=== PATIENT | male | born 1960 | race Caucasian/White ===

== ENCOUNTER → 2016-05-14 | Outpatient (CLI) | payer OTHER ==
[~2016-05-14] MED LIST: ACET-1256 PO; ADVIN25050 INH; AMLO10CA2 PO; ATOR10TA88 PO; CLB100 PO; CO Q10 PO; COEN1CAP17 PO; DEXT30TA7 PO; KETO10TA PO; MELO15TA4 PO; MULTTAB5 PO; NXM/40 PO; OXYC-57 PO; TIOTCAP INH; TRIA3AER NAE
--- NOTE | 2016-05-14 15:07 | DIAGNOSTIC IMAGING REPORT ---
CHEST 2 VIEWS ROUTINE CLINICAL HISTORY: Preoperative chest COMPARISON STUDY: 06/16/2015 FINDINGS: The cardiac and mediastinal contours are normal. There is no evidence of focal pulmonary consolidation. There is no evidence of failure. No pleural effusions are visualized.[ IMPRESSION: No active disease in the chest. Electronically signed by: Basim Montoya M.D. 05/14/2016 3:05 PM Dictated Date/Time: 05/14/2016 3:05 PM
[2016-05-14 15:46] LABS: BASO % 0.3 %; BASO ABS # 0.03 K/uL (0-0.2); COMPLETE YES; EOS % 2.2 %; HEMATOCRIT 46.4 % (42-52); IG% 0.4 %; LYMPH % 24.4 %; LYMPH ABS # 2.79 K/uL (1.2-3.4); MEAN CELL VOLUME 86.4 fL (80-100); MEAN CORPUSCULAR HEMOGLOBIN 28.7 pg (25-34); MEAN CORPUSCULAR HGB CONC 33.2 g/dl (32-36); MEAN PLATELET VOLUME 11.5 fL (7.4-10.4); MONO % 9.5 %; NEUT % 63.2 %; PLATELET COUNT 276 K/uL (130-400); RED BLOOD COUNT 5.37 M/uL (4.7-6.1); WHITE BLOOD COUNT 11.42 K/uL (4.8-10.8)
[2016-05-14 16:04] LABS: BLOOD UREA NITROGEN 19 mg/dl (7-18); BUN/CREATININE RATIO 20.8 (10-20); CALCIUM 8.9 mg/dl (8.5-10.1); CARBON DIOXIDE 28 mmol/L (21-32); CHLORIDE 105 mmol/L (98-107); GLUCOSE 120 mg/dl (70-99); POTASSIUM 4.1 mmol/L (3.5-5.1); SODIUM 141 mmol/L (136-145)
== END | disposition home or self-care (01) ==
LOC: C.CPL 14:14
PROVIDERS: ATTEND Orthopaedic Surgery
DX: Z01.810 Encounter for preprocedural cardiovascular examination (principal); Z01.811 Encounter for preprocedural respiratory examination; Z01.812 Encounter for preprocedural laboratory examination; M75.81 Other shoulder lesions, right shoulder

== ENCOUNTER → 2016-05-31 | Day surgery (SDC) | payer OTHER ==
[2016-05-22 08:49] VITALS: BMI 52.0
--- NOTE | 2016-05-30 14:35 | HISTORY & PHYSICAL EXAMINATION ---
DATE OF ADMISSION: 05/31/2016 HISTORY AND PHYSICAL ADMISSION NOTE CHIEF COMPLAINT: Biceps tendinopathy of the right shoulder. 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 He states he injured his shoulder over a year ago. He reported the incident and was treated by another provider. He had multiple conservative measures and ultimately did have surgery to his shoulder. After the surgery, he continued to notice pain and popping in his shoulder and a lot of pain anteriorly. He had a decompression and a debridement of the biceps tendon at the time. After failing about a year of conservative treatment, he presented to our office for second opinion. I was concerned of the persistent biceps tendinopathy and he elected to proceed with an open biceps tenodesis. PAST MEDICAL HISTORY: Significant for problems with anesthesia, blood clots, hyperlipidemia, hypertension, GERD and respiratory disease. PAST SURGICAL HISTORY: Significant for a right foot ganglion cyst excision, tonsillectomy, left total knee arthroplasty, hernia repair, vasectomy, right shoulder arthroscopy in June of 2015 and sinus surgery. ALLERGIES: None. MEDICATIONS: Include albuterol 2 puffs as needed, Lotrel 10-20 daily, Lipitor 10 mg daily, Voltaren gel as needed, Nexium 40 mg daily, Advair Diskus 1 puff twice a day, Mobic 50 mg daily, Oxycodone as needed for pain, and Spiriva inhaler daily. FAMILY HISTORY: Noncontributory. SOCIAL HISTORY: He is , never drinks. denies tobacco use. Has 1 child and is moderately active. REVIEW OF SYSTEMS: He complains of right shoulder pain. All other pertinent review of systems is negative. PHYSICAL EXAMINATION: GENERAL: He is awake, alert and oriented x3. He is in no apparent distress. He is very pleasant. HEENT: Pupils are equal, round and reactive to light. Extraocular motion intact. Oral mucosa is pink and moist. HEART: Regular rate per radial pulse. LUNGS: Daylin symmetrically bilaterally with no audible breath sounds. ABDOMEN: Soft, nontender, nondistended. MUSCULOSKELETAL: On physical examination of the right shoulder, he has just about full active range of motion. He has 4+/5 muscle strength with full can testing, 5/5 muscle strength with external rotation. Negative bear hug and belly press test. He has significant tenderness to palpation in the subacromial space and down the length of the long head of the biceps tendon. No AC joint pain. IMPRESSION: Biceps tendinopathy of the right shoulder. PLAN: Will proceed with a revision right shoulder arthroscopy to include removal of scar tissue and open sub-pec biceps tenodesis. Postoperatively, he will be placed in an arm sling and oral pain medications and discharged to home. LIZBETH
[~2016-05-31] VITALS: Ht 177.8 cm; Wt 164.6 kg
[~2016-05-31] MED LIST changes: +ATOR10TA82 PO; -ATOR10TA88 PO; +ATROPINE SULFATE 0.1 MG/ML 5ML SYR IV PRN; +BUPIVACAINE/EPINEPHRINE 0.5% MPF 1:200,000 30 ML VIAL ONE; +CEFAZOLIN 3000 MG/65 ML D5W 65 ML IV SCH; -CLB100 PO; -CO Q10 PO; +DEXAMETHASONE SOD INJ 4 MG/ML VIAL ONE; -DEXT30TA7 PO; +EpHEDrine SULFATE INJ 50 MG/ML AMP IV PRN; +FENTANYL CITRATE INJ 50 MCG/1 ML 2 ML VIAL IV PRN; +FENTANYL CITRATE INJ 50 MCG/1 ML 2 ML VIAL ONE; +HYDROmorphone INJ 1 MG/ML SYR IV PRN; +LABETALOL HCL IV 5 MG/ML 20ML IV PRN; +LACTATED RINGER'S 1000ML 1,000 ML IV SCH; +LACTATED RINGER'S 1000ML IV SCH; +LIDOCAINE HCL 2% 2 ML VIAL (20MG/ML) ONE; +LIDOCAINE/EPINEPHRINE 2% 1:200,000 20 ML SDV ONE; +MEPERIDINE HCL 25 MG/ML CARP IV PRN; +MIDAZOLAM HCL 1 MG/ML 2ML VIAL ONE; +ONDANSETRON INJ 2 MG/ML 2 ML VIAL IV PRN; +ONDANSETRON INJ 2 MG/ML 2 ML VIAL ONE; +OXYCODONE/ACETAMINOPHEN 5-325 TAB PO PRN; +PHENYLEPHRINE HCL INJ 10 MG/ML VIAL ONE; +PROPOFOL IV EMULSION 10 MG/ML 20 ML VIAL IV ONE; +ROCURONIUM BROMIDE 10 MG/ML 5 ML VIAL ONE; +ROPIVACAINE 0.5% 5 MG/ML 30 ML VIAL ONE; +SODIUM CHLORIDE 0.9% 1000ML 1,000 ML IV SCH; +SUCCINYLCHOLINE CHLORIDE 20 MG/ML 10 ML VIAL IV ONE
--- NOTE | 2016-05-31 08:48 | History & Physical Bridge Note ---
H&P Re-Evaluation Bridge Note: I have examined the patient, reviewed the History & Physical and in the interval since the performance of the History & Physical I have noted the following changes of clinical significance: No changes noted
[2016-05-31 09:15] VITALS: BP 175/99; PULSE 95; TEMP 36.8; O2SAT 95; Ht 177.8 cm; Wt 164.6 kg
--- NOTE | 2016-05-31 12:56 | [facility] Post Operative Brief Note ---
Immediate Operative Summary Operative Date May 31, 2016. Pre-Operative Diagnosis Biceps tendinopathy of the right shoulder Post-Operative Diagnosis Biceps tendinopathy of the right shoulder Procedure(s) Performed Right Shoulder Arthroscopy with distal clavicle resection and bicep tenotomy Surgeon Dr. Vo Corrosion Control Specialist Surgeon(s) Jd Saavedra PA-C Estimated Blood Loss 5mL Findings as above Specimens none per surgeon Complication(s) None Disposition Recovery Room / PACU
--- NOTE | 2016-05-31 13:06 | Discharge Instructions ---
Discharge Instructions Date of Service May 31, 2016. Admission Reason for Admission: Right Shoulder Biceps Tendonitis Discharge Discharge Diagnosis / Problem: SAME ABOVE Discharge Goals Goal(s): Decrease discomfort, Improve function Activity Recommendations Activity Limitations: as noted below Lifting Limitations: gradually increase as tolerated, until after follow-up appointment Exercise/Sports Limitations: until after follow-up appointment Shower/Bathe: tomorrow . Instructions / Follow-Up Instructions / Follow-Up MEDICATIONS: * Resume previous medications unless instructed otherwise by your surgeon. * Always take pain medication on a full stomach or with food to avoid upset stomach. * Do not drink alcohol or drive while taking narcotics. * Ibuprofen or Tylenol may be taken if narcotic not needed. SPECIAL CARE INSTRUCTIONS: __ None _X_ Keep extremity elevated and iced x 48 hours; apply ice 20-30 minutes 8-10 times/day. May remove at night. _X_ Sling (WEAR NEEDED FOR COMFORT) __24 hrs/day __ Remove at night __ Shoulder Immobilizer __ 24 hrs/day __ Remove at night _X_ Dressing __ Maintain until seen in office, may shower with plastic over site _X_ Remove dressings in 24-48 hours and then may shower _X_ Cover incisions with band-aids after showering _X_ Do not remove steri-strips Call physician if chills or temperature rises above 102 degrees or pain unrelieved by prescribed pain medications at . . Current Hospital Diet Patient's current hospital diet: Discharge Diet Recommended Diet: Regular Diet Fluid Restriction: None Procedures Procedures Performed: Right Shoulder Arthroscopy with distal clavicle resection and bicep tenotomy Pending Studies Studies pending at discharge: no Work Instructions Return To Work: after follow-up Lifting Limitations: NO LIFTING WITH RIGHT ARM Medical Emergencies . Who to Call and When: Medical Emergencies: If at any time you feel your situation is an emergency, please call 911 immediately. . Non-Emergent Contact Non-Emergency issues call your: Primary Care Provider Call Non-Emergent contact if: you have a fever, temperature is above 101.5 . "Provider Documentation" section prepared by Jd Saavedra. VTE Core Measure Inpt VTE Proph given/why not?: SCD's
--- NOTE | 2016-05-31 13:24 | OPERATIVE REPORT ---
DATE OF OPERATION: 05/31/2016 PREOPERATIVE DIAGNOSIS: Scar tissue formation and biceps tendinopathy of the right shoulder. POSTOPERATIVE DIAGNOSIS: Same. PROCEDURE: Right shoulder diagnostic arthroscopy with extensive debridement, revision distal clavicle resection, and biceps tenotomy. SURGEON: Dr. Darío Vo. ASSEMBLER SEAT: Josafat Saavedra PA-C, whose assistance was necessary for positioning the arm and helping with instrumentation. ANESTHESIA: General with a right interscalene nerve block. COMPLICATIONS: None. CONDITION: Stable to PACU. INDICATIONS: Chano is a pleasant 55-year-old male who injured his shoulder about a year ago. He had a right shoulder arthroscopy to include decompression and distal clavicle resection. Unfortunately, he had a lot of pain postoperatively. After failing a year of conservative treatment and with continued pain, he presented to my office for a second opinion. MRI and clinical examination showed an intact rotator cuff, but evidence of biceps tendinopathy. He elected to undergo arthroscopy. OPERATION AND FINDINGS: On 05/31/2016 he arrived at [facility] for the above procedure. He was seen in the preoperative holding area and the operative extremity was identified and signed. He was given a preoperative antibiotic and a right interscalene nerve block. He was taken back to the operating room, laid on the table in supine position and put under general anesthesia. He was then put into the beachchair position. The right shoulder was prepped and draped in sterile fashion. Time-out was done and the patient and operative extremity was identified. A scope was introduced in the posterior portal. Diagnostic arthroscopy showed some grade 4 chondral changes on the posterior glenoid. There was some grade 3 chondral changes on the posterior aspect of the humeral head. There was a large superior labral tear and significant redness and scarring of the biceps tendon. There was redness and scarring throughout the entire rotator interval. It did not appear to be a frozen shoulder. The subscapularis was intact. The middle and anterior inferior glenohumeral ligaments looked okay. The supraspinatus, infraspinatus and teres minor were checked and intact. An anterior portal was made. A shaver and ablator were used to start an extensive debridement. The entire rotator interval was opened up and care was taken to ensure hemostasis throughout. The labrum was debrided with a large superior labral tear and the fraying on the anterior aspect of the biceps the decision was made to do a biceps tenotomy. The biceps tendon was then arthroscopically tenotomized. The scope was then put into the subacromial space. A lateral portal was made. A shaver was used to do an extensive debridement including complete subacromial and subdeltoid bursectomy. Scar tissue was removed from the medial subacromial space as well as in the subdeltoid region. Once all scar tissue was removed time was spent ensuring meticulous hemostasis with a cautery. There was a portion of the distal clavicle that had not been removed at the previous surgery. It was impinging upon the supraspinatus tendon. A 5-0 cameron was used to resect the undersurface of the clavicle to open up the supraspinatus outlet and complete a revision distal clavicle resection. A revision acromioplasty was not needed. The rotator cuff was intact from the bursal side. After all scar tissue had been removed and hemostasis was completely controlled arthroscopic instruments removed from the shoulder. Attention was turned to an open subpectoral biceps tenodesis. A small incision was made over the inferior border of the pec major and dissection was taken down through the fascia. I was unable to pull the long head of the biceps tendon out of the wound. I was able to easily identify it, but it was entrapped more proximally. Several different techniques were used to try to pull it out of the wound, but I was eventually getting a little bit of tearing at the musculotendinous junction and decided to leave it alone. I think the tenotomy will be beneficial. The wound was then irrigated and closed with 3-0 Vicryl and running 3-0 Monocryl. Steri-strips were placed. Portal sites were closed with 3-0 nylon. He was then placed in a soft dressing and a regular arm sling. He was then extubated, transferred to a [facility] and taken to the postanesthesia care unit in stable condition. He tolerated the procedure well. I attest to the content of the Intraoperative Record and any orders documented therein. Any exceptio ns are noted below.
[2016-05-31 14:15] VITALS: BP 145/79; PULSE 98; TEMP 36.5; O2SAT 93
[2016-05-31 14:45] VITALS: BP 139/91; PULSE 96; O2SAT 93
[2016-05-31 15:15] VITALS: BP 148/83; PULSE 94; TEMP 36.6; O2SAT 92
--- NOTE | 2016-05-31 16:13 | Anesthesiology Progress Note ---
Anesthesia Post Op Note Date & Time May 31, 2016 at 16:12 Vital Signs Pain Intensity: 0 Vital Signs Past 12 Hours Date Time Temp Pulse Resp B/P Pulse Ox O2 Delivery O2 Flow Rate FiO2 05/31/16 15:15 36.6 94 18 148/83 92 Room Air 05/31/16 14:45 96 18 139/91 93 Nasal Cannula 2 05/31/16 14:15 36.5 98 16 145/79 93 Nasal Cannula 2 05/31/16 14:00 36.1 96 15 128/89 90 Nasal Cannula 2 05/31/16 13:50 95 16 135/84 91 Nasal Cannula 2 05/31/16 13:40 97 18 141/90 90 Nasal Cannula 2 05/31/16 13:30 95 22 166/102 90 Nasal Cannula 2 05/31/16 13:20 98 19 160/98 91 Nasal Cannula 4 05/31/16 13:10 101 20 156/91 92 Nasal Cannula 4 05/31/16 13:04 36.0 102 16 171/99 92 Nasal Cannula 2 05/31/16 09:15 36.8 95 18 175/99 95 Room Air Notes Mental Status: alert / awake / arousable, participated in evaluation Pt Amnestic to Procedure: Yes Nausea / Vomiting: adequately controlled Pain: adequately controlled Airway Patency, RR, SpO2: stable & adequate BP & HR: stable & adequate Hydration State: stable & adequate Anesthetic Complications: no major complications apparent
== END | disposition home or self-care (01) ==
LOC: C.ACU 08:23
PROVIDERS: ATTEND Orthopaedic Surgery
DX: M75.21 Bicipital tendinitis, right shoulder (principal); L90.5 Scar conditions and fibrosis of skin; E78.5 Hyperlipidemia, unspecified; I10 Essential (primary) hypertension; K21.9 Gastro-esophageal reflux disease without esophagitis; Z98.890 Other specified postprocedural states

== ENCOUNTER 2017-06-20 10:58 | Inpatient (IN) | payer OTHER ==
[2017-05-21 13:42] VITALS: Ht 177.8 cm; Wt 176.9 kg
--- NOTE | 2017-05-21 13:48 | PAT Medication Instructions ---
Service Date May 21, 2017. Current Home Medication List Acetaminophen (Tylenol), 1,000 MG PO Q4H Albuterol Hfa (Ventolin Hfa), 2 PUFFS INH UD Amlodipine Besylate-Benazepril (Lotrel), 1 CAP PO QAM Amoxicillin (Amoxil), 500 MG PO UD Atorvastatin (Lipitor), 10 MG PO QPM Coenzyme Q10 (Ubidecarenone) (Co Q 10), 1 CAP PO BID Diclofenac Sodium (Topical) (Voltaren 1% Top Gel), 1 DOSE TOP UD PRN for PRN Esomeprazole Magnesium (Nexium), 40 MG PO QAM Fluticasone Furoate-Vilanterol (Breo Ellipta), 1 PUFF INH QAM Meloxicam (Mobic), 15 MG PO QAM Metoprolol Succinate (Toprol Xl), 50 MG PO QAM Montelukast Sodium (Singulair), 10 MG PO HS Multiple Vitamins W/ Minerals (Centrum), 1 TAB PO QAM Cgbjnjsm-Outzcnkgc-Om (Otic) (Neomycin/Polymyxin/Hc), 1 DOSE OTB UD PRN for PRN Tiotropium [place] (Spiriva Handihaler), PO QAM Triamcinolone Acetonide (Nasal (Nasacort Allergy 24Hr), 1 DOSE JESSICA QPM [Albuterol Neb], Unknown Dose INH UD PRN for PRN Medication Instructions For Your Scheduled Surgery - Check with surgeon for instructions: Meloxicam (Mobic), 15 MG PO QAM - Hold the following medications 2 weeks prior to surgery: Coenzyme Q10 (Ubidecarenone) (Co Q 10), 1 CAP PO BID - Continue as directed: Amoxicillin (Amoxil), 500 MG PO UD - Hold the following medications 24 hours prior to surgery: Diclofenac Sodium (Topical) (Voltaren 1% Top Gel), 1 DOSE TOP UD PRN for PRN - Hold the following medications the morning of surgery: Multiple Vitamins W/ Minerals (Centrum), 1 TAB PO QAM - Take the following medications the morning of surgery with a sip of water: Esomeprazole Magnesium (Nexium), 40 MG PO QAM Fluticasone Furoate-Vilanterol (Breo Ellipta), 1 PUFF INH QAM Metoprolol Succinate (Toprol Xl), 50 MG PO QAM Emwsxydu-Qfmptwusu-Dp (Otic) (Neomycin/Polymyxin/Hc), 1 DOSE OTB UD PRN for PRN (if needed) Tiotropium [place] (Spiriva Handihaler), PO QAM [Albuterol Neb], Unknown Dose INH UD PRN for PRN (if needed) Albuterol Hfa (Ventolin Hfa), 2 PUFFS INH UD Amlodipine Besylate-Benazepril (Lotrel), 1 CAP PO QAM Acetaminophen (Tylenol), 1,000 MG PO Q4H (okay to take up to 4 hours prior to surgery if needed) - Take the following medications as scheduled the night before surgery: [Albuterol Neb], Unknown Dose INH UD PRN for PRN (if needed) Triamcinolone Acetonide (Nasal (Nasacort Allergy 24Hr), 1 DOSE JESSICA QPM Jaddiibn-Qxyxxgbnp-Ew (Otic) (Neomycin/Polymyxin/Hc), 1 DOSE OTB UD PRN for PRN (if needed) Montelukast Sodium (Singulair), 10 MG PO HS Atorvastatin (Lipitor), 10 MG PO QPM Albuterol Hfa (Ventolin Hfa), 2 PUFFS INH UD Acetaminophen (Tylenol), 1,000 MG PO Q4H (if needed) If you have any questions please call us at [phone] or [phone] or [phone]
[2017-05-21 15:41] LABS: PTT PATIENT 26.1 SECONDS (21.0-31.0)
--- NOTE | 2017-06-19 09:18 | HISTORY & PHYSICAL EXAMINATION ---
DATE OF ADMISSION: 06/20/2017 CHIEF COMPLAINT: Primary osteoarthritis of the right shoulder. 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 I initially did a shoulder arthroscopy on him for decompression and biceps tenodesis, but noticed some osteoarthritis of his shoulder at that time. Unfortunately, over the past year, his symptoms have progressed. Serial radiographs showed advancing osteoarthritis of the right shoulder. After failing extensive conservative treatment including multiple injections, he has elected to proceed with a right total shoulder arthroplasty. PAST MEDICAL HISTORY: Significant for hyperlipidemia, hypertension, GERD, some respiratory disease and some blood clots in the past, but nothing recent. PAST SURGICAL HISTORY: Significant for a surgery to his right foot, tonsillectomy, left total knee arthroplasty, hernia repair, vasectomy, right shoulder arthroscopy and sinus surgery. ALLERGIES: None. MEDICATIONS: Include albuterol, amlodipine, amoxicillin, atorvastatin, CoQ10, Voltaren, Nexium, Advair, Mobic, Percocet as needed, Spiriva, and Nasacort. FAMILY HISTORY: Significant for heart disease and breast cancer. SOCIAL HISTORY: He is . He never drinks, moderately active. He has 1 child. His is able to help take care of him at home. REVIEW OF SYSTEMS: He complains of right shoulder pain and stiffness. All other pertinent review of systems are negative. PHYSICAL EXAMINATION: GENERAL: He is awake, alert and oriented x3. He is in no apparent distress. He is very pleasant. HEENT: Pupils equal, round, reactive to light. Extraocular motion intact. Oral mucosa is pink and moist. HEART: Regular rate per radial pulse. LUNGS: Daylin symmetrically bilaterally with no audible breath sounds. ABDOMEN: Soft, nontender, nondistended. MUSCULOSKELETAL: On physical examination of his right shoulder, he has about 130 degrees of forward elevation and 100 degrees of abduction. He has 5/5 muscle strength to full can test and external rotation, significant tenderness to palpation over the anterior glenohumeral joint line with crepitus throughout. IMAGING DATA: X-rays of the right shoulder show advanced osteoarthritis with bone on bone articulation, joint space narrowing and osteophyte formation. IMPRESSION: Advanced osteoarthritis of the right shoulder. PLAN: Will proceed with a Biomet comprehensive right total shoulder arthroplasty. Postoperatively, he will be placed in an arm sling and kept overnight at the hospital for postoperative medical management. He will use community nursing at [facility] [place] upon discharge.
[2017-06-20] VITALS (9 sets, daily range): BP systolic 109–150; BP diastolic 64–91; PULSE 59–85; TEMP 36.5–37; O2SAT 91–98
[~2017-06-20] VITALS: Ht 177.8 cm; Wt 176.9 kg
[2017-06-20] MEDS: TRANEXAMIC ACID INJ 1,000 MG x 2 Bags IV SCH ×4 (06:30→13:02)
[~2017-06-20 10:58] MED LIST changes: +ACETAMINOPHEN 500 MG TAB PO SCH; -ADVIN25050 INH; +ALBUTEROL NEB INH; +AMOX500C3 PO; -BUPIVACAINE/EPINEPHRINE 0.5% MPF 1:200,000 30 ML VIAL ONE; -CEFAZOLIN 3000 MG/65 ML D5W 65 ML IV SCH; +CEFAZOLIN 3000MG IV PUSH 22.5 ML IV SCH; -DEXAMETHASONE SOD INJ 4 MG/ML VIAL ONE; +DICL1GEL12 TOP; +FAMOTIDINE 20 MG TAB PO SCH; -FENTANYL CITRATE INJ 50 MCG/1 ML 2 ML VIAL IV PRN; -FENTANYL CITRATE INJ 50 MCG/1 ML 2 ML VIAL ONE; +FLUT1INH INH; +FURO40TA3 PO; +GABAPENTIN 600 MG PO SCH; -HYDROmorphone INJ 1 MG/ML SYR IV PRN; +HYDROmorphone INJ 2 MG/ML SYR/VIAL IV PRN; -KETO10TA PO; -LABETALOL HCL IV 5 MG/ML 20ML IV PRN; -LACTATED RINGER'S 1000ML 1,000 ML IV SCH; -LIDOCAINE HCL 2% 2 ML VIAL (20MG/ML) ONE; -LIDOCAINE/EPINEPHRINE 2% 1:200,000 20 ML SDV ONE; +MELO-84 PO; -MELO15TA4 PO; -MEPERIDINE HCL 25 MG/ML CARP IV PRN; +METO-217 PO; -MIDAZOLAM HCL 1 MG/ML 2ML VIAL ONE; +MONT1TAB3 PO; +NEOM1SOL25 OTB; -ONDANSETRON INJ 2 MG/ML 2 ML VIAL ONE; -OXYC-57 PO; -OXYCODONE/ACETAMINOPHEN 5-325 TAB PO PRN; +PHENYLEPHRINE 100MCG/ML 5ML SYR IV PRN; -PHENYLEPHRINE HCL INJ 10 MG/ML VIAL ONE; -PROPOFOL IV EMULSION 10 MG/ML 20 ML VIAL IV ONE; -ROCURONIUM BROMIDE 10 MG/ML 5 ML VIAL ONE; +ROPIVACAINE 5MG/ML 30 ML 150 MG, BUPIVACAINE 0.5% MPF INJ 30 ML, EpINEphrine HCL INJ 0.... INFIL SCH; -SODIUM CHLORIDE 0.9% 1000ML 1,000 ML IV SCH; +SPRIN/30 PO; -SUCCINYLCHOLINE CHLORIDE 20 MG/ML 10 ML VIAL IV ONE; -TIOTCAP INH; +TRIA1SPR4 NAE; -TRIA3AER NAE; +VNTHFA/IN INH
[2017-06-20] MEDS ORDERED: BACITRACIN 50000 UNIT VIAL ONE (12:38)
[2017-06-20] MEDS ORDERED: ORTHO JOINT ANESTHETIC ONE (12:38)
[2017-06-20] MEDS ORDERED: PROPOFOL IV EMULSION 10 MG/ML 20 ML VIAL IV ONE ×2 (12:39→15:56)
[2017-06-20] MEDS ORDERED: LIDOCAINE HCL 2% 2 ML VIAL (20MG/ML) ONE ×2 (12:39→13:55)
[2017-06-20] MEDS ORDERED: MIDAZOLAM HCL 1 MG/ML 2ML VIAL ONE (12:39)
[2017-06-20] MEDS ORDERED: FENTANYL CITRATE INJ 50 MCG/1 ML 2 ML VIAL ONE ×2 (12:40→15:30)
[2017-06-20] MEDS ORDERED: DEXAMETHASONE SOD INJ 4 MG/ML VIAL ONE (13:55)
[2017-06-20] MEDS ORDERED: ONDANSETRON INJ 2 MG/ML 2 ML VIAL ONE (13:55)
[2017-06-20] MEDS ORDERED: ROCURONIUM BROMIDE 10 MG/ML 5 ML VIAL IV ONE (13:55)
[2017-06-20] MEDS ORDERED: EpHEDrine SULFATE 50MG/5ML SYR ONE (14:01)
[2017-06-20] MEDS ORDERED: NEOSTIGMINE METHYLSULFATE 5 MG/5 ML SYR ONE (14:32)
[2017-06-20] MEDS ORDERED: GLYCOPYRROLATE INJ 0.2 MG/ML VIAL ONE ×3 (14:32→15:56)
--- NOTE | 2017-06-20 15:29 | [facility] Post Operative Brief Note ---
Immediate Operative Summary Operative Date Jun 20, 2017. Pre-Operative Diagnosis Advanced Osteoarthritis of Right Shoulder Post-Operative Diagnosis Advanced Osteoarthritis of Right Shoulder Procedure(s) Performed Right Total Shoulder Replacement, cemented Surgeon Dr. Darío Vo Plastic Welding Machine Operator Surgeon(s) Jd Saavedra PA-C Estimated Blood Loss 250 cc Findings Consistent with Post-Op Diagnosis Specimens Permanent: A. Right humeral head Drains None Anesthesia Type General Regional Complication(s) none Disposition Disposition: Recovery Room / PACU
[2017-06-20] MEDS ORDERED: SOD PHOSPHATE/SOD BIPHOSPHATE ENEMA 132 ML BTL PR PRN (15:30)
[2017-06-20] MEDS ORDERED: MAGNESIUM HYDROXIDE SUSP 30 ML UDC PO PRN (15:30)
[2017-06-20] MEDS ORDERED: FUROSEMIDE 40 MG TAB PO PRN (15:30)
[2017-06-20] MEDS ORDERED: MoRPHine SULFATE 2 MG/ML CARP IV PRN (15:30)
[2017-06-20] MEDS ORDERED: ONDANSETRON INJ 2 MG/ML 2 ML VIAL IV PRN (15:30)
[2017-06-20] MEDS ORDERED: NALOXONE HCL 0.4 MG/1 ML VIAL/CARP IV PRN (15:30)
[2017-06-20] MEDS ORDERED: BISACODYL 10 MG SUPP PR PRN (15:30)
[2017-06-20] MEDS ORDERED: METOCLOPRAMIDE HCL INJ 5 MG/ML 2 ML VIAL IV PRN (15:30)
[2017-06-20] MEDS ORDERED: HYDROmorphone INJ 2 MG/ML SYR/VIAL ONE (16:06)
--- NOTE | 2017-06-20 16:23 | OPERATIVE REPORT ---
DATE OF OPERATION: 06/20/2017 PREOPERATIVE DIAGNOSIS: Primary osteoarthritis of the right shoulder. POSTOPERATIVE DIAGNOSIS: Same. PROCEDURE: Right total shoulder arthroplasty. SURGEON: Dr. Darío Vo. MANAGER ORGANIZATIONAL: Jd Saavedra PA-C, whose assistance was necessary for holding retractors, exposure, and closure. ANESTHESIA: General with a right interscalene nerve block. COMPLICATIONS: None. CONDITION: Stable to PACU. This case took about twice as long as a normal shoulder replacement given his size. He had BMI of 56 and he was any way close to 400 pounds. Exposure was very difficult and several different style retractors were used that I am not accustomed to. IMPLANTS USED: I used a Biomet comprehensive right total shoulder arthroplasty system with a size medium glenoid with a Regenerex peg, a size 14 mini pressfit stem and a size 46 x 18 mm eccentric humeral head. INDICATIONS: Chano is a pleasant 56-year-old male who had been treated for right shoulder pain. I initially did a shoulder scope on him over a year ago. Unfortunately, he has gone on to develop advanced osteoarthritis of his right shoulder. After failing conservative treatment, he has elected to proceed with a right total shoulder arthroplasty. On 06/20/2017, he arrived at [facility] for the above procedure. He was seen in preoperative holding and the operative extremity was identified and signed. He was given a preoperative antibiotic and a right interscalene nerve block. He was taken back to operating room, laid on the table in supine position and given general anesthesia. He was then put into the beachchair position. The right shoulder was prepped and draped in sterile fashion. Time-out was done and the patient's operative extremity was properly identified. A deltopectoral approach was used. Dissection was taken down through the fat tissue and the interval was exposed. The deltoid was retracted laterally and the conjoined tendon was retracted medially. The upper border of the pec major was released. The shoulder was exposed. Significant time was spent with deeper retractors given his size. The biceps tendon had been previously tenotomized. The subscapularis was then tenotomized off the lesser tuberosity with a peel technique. The proximal humerus was exposed. A canal finding reamer was sent down the center of the humeral canal. Sequential reaming up to a size 14 reamer was done. Off that reamer, a proximal humeral resection guide was placed. The proximal humerus was resected at 135 degrees of inclination and 30 degrees of retroversion. The head was removed. The rotator cuff was palpated and felt to be intact. The glenoid was then exposed. Again, significant time was spent obtaining adequate glenoid exposure given his size. Once appropriate exposure was obtained, the [employer] signature guide was then snapped on to the anterior aspect of the glenoid. The guide pin was placed in the total shoulder arthroplasty hole. A size medium propeller reamer was then used to slightly eccentrically ream the glenoid. The guide placed the glenoid at 7 degrees of retroversion. Once I was happy with the ream, the central boss was drilled followed by 3 peripheral peg holes. The final medium glenoid with Regenerex peg was then cemented into place. The proximal humerus was then exposed. Sequential broaching up to a size 14 broach was done. Off the final broach, a 46 x 18 mm eccentric head was trialed. The shoulder was reduced, brought through a full range of motion and felt to be stable. The proximal humerus was exposed. The broach was then removed. The final size 14 mm mini stem was then impacted into place. A size 46 x 18 mm eccentric head was then impacted on the humeral stem. The shoulder was reduced, brought through a full range of motion and felt to be stable. The surrounding soft tissues were injected with 100 mL of an orthopedic pain control cocktail. The subscapularis was then tenodesed back to the lesser tuberosity with transosseous FiberWire sutures and [id number] sutures in the lateral rotator interval. The axillary nerve was palpated. The joint was irrigated with 3 L normal saline solution and bacitracin. The cephalic vein was still intact. Skin was closed with 2-0 Vicryl, 3-0 V-Loc suture and minerva. He was then placed in a soft dressing and a regular arm sling. He was then extubated, transferred to a litter, and taken to the postanesthesia care unit in stable condition. He tolerated the procedure well. I attest to the content of the Intraoperative Record and any orders documented therein. Any exception s are noted below.
[2017-06-20] MEDS ORDERED: NURSING VERBAL MED ORDER ONE (16:30)
[2017-06-20] MEDS ORDERED: ALBUT/IPRATROP 3MG/0.5MG NEB 3 ML VIAL INH ONE (16:45)
--- NOTE | 2017-06-20 16:45 | DIAGNOSTIC IMAGING REPORT ---
R SHOULDER MIN 2 VIEWS ROUTINE CLINICAL HISTORY: Post shoulder surgery COMPARISON: None. DISCUSSION: Anatomic alignment post right shoulder arthroplasty. Good contact between prosthetic and underlying bone. Expected soft tissue postoperative change IMPRESSION: Anatomic alignment post right shoulder arthroplasty The above report was generated using voice recognition software. It may contain grammatical, syntax or spelling errors. Electronically signed by: Bill Ward M.D. 06/20/2017 4:44 PM Dictated Date/Time: 06/20/2017 4:43 PM
--- NOTE | 2017-06-20 19:21 | Medical Consult ---
Consultation Date of Consultation: Jun 20, 2017. Attending Physician: Darío Vo DO Reason for Consultation: Medical management History of Present Illness This is a 56 yo M with PMHx of hyperlipidemia, hypertension, GERD, SHANITA, SHANITA on cpap, hx of recurrent bronchitis requiring inhalers/nebulizer tx, and remote hx of DVT, who presented for elective R shoulder arthroplasty by Dr. Vo on . PT reports doing well currently other than feeling as if he needs a nebulizer treatment. He is coughing slightly with some yellow-white mucous production. He denies any fever, sweats or chills. PT also notes he uses a room cleaner for his cpap and has not required a nebulizer treatment for upwards of 2 years at this point. He reports some numbness and tingling into the R hand still, mostly that his thumb is affected. Pt denies any other acute complaints. Past Medical/Surgical History HLD HTN GERD Morbid obesity BMI 56 Hx of DVT R leg Surgical Hx: right foot tonsillectomy left total knee arthroplasty hernia repair vasectomy right shoulder arthroscopy sinus surgery Family History FH: COPD (chronic obstructive pulmonary disease) FATHER FH: breast cancer MOTHER FH: myocardial infarction FATHER Social History Smoking Status: Never Smoker Smokeless Tobacco Use: No Alcohol Use: none Drug Use: none Marital Status: Housing Status: lives with family Occupation Status: disabled (on workmans comp) Allergies Coded Allergies: No Known Allergies (Unverified , 06/20/17) Current Inpatient Medications Current Inpatient Medications Medications (Trade) Dose Ordered Sig/Koby Route Start Time Stop Time Status Last Admin Dose Admin Miscellaneous Information (Order Awaiting Action) 1 ea QS N/A 06/20/17 17:00 07/20/17 16:59 06/20/17 17:00 1 EA Atorvastatin Calcium (Lipitor Tab) 10 mg QPM PO 06/20/17 21:00 07/20/17 20:59 UNV Furosemide (Lasix Tab) 40 TO 80MG 2-3 TIMES PER W... UD PRN PO 06/20/17 15:30 07/20/17 15:29 Metoprolol Succinate (Toprol Xl Tab) 50 mg QAM PO 06/21/17 09:00 07/21/17 08:59 UNV Montelukast Sodium (Singulair Tab) 10 mg HS PO 06/20/17 21:00 07/20/17 20:59 UNV Tiotropium [place] (Spiriva Handihaler Inhaler) 1 puff QAM INH 06/21/17 09:00 07/21/17 08:59 Triamcinolone Acetonide (Nasacort Allergy 24hr) 1 sprays QPM JESSICA 06/20/17 21:00 07/20/17 20:59 Amlodipine Besylate (Norvasc Tab) 10 mg QAM PO 06/21/17 09:00 07/21/17 08:59 Miscellaneous Information (Order Awaiting Action) 1 ea QS N/A 06/20/17 17:00 07/20/17 16:59 Metoclopramide HCl (Reglan Inj) 10 mg Q6H PRN IV 06/20/17 15:30 07/20/17 15:29 Ondansetron HCl (Zofran Inj) 4 mg Q6H PRN IV 06/20/17 15:30 07/20/17 15:29 06/20/17 17:28 4 MG Pantoprazole Sodium (Protonix Tab) 40 mg QAM PO 06/21/17 09:00 06/24/17 09:01 UNV Potassium Chloride 10 meq/ Sodium Chloride 1,005 ml @ 100 mls/hr Q10H3M IV 06/20/17 18:30 07/20/17 18:29 Ketorolac Tromethamine (Toradol Inj) 30 mg Q6H IV. 06/20/17 15:30 06/22/17 15:29 UNV Oxycodone HCl (Roxicodone Immediate Rel Tab) `1-2 TABS FOR PAIN `1 TAB... Q4H PRN PO 06/20/17 15:30 07/04/17 15:29 Acetaminophen 1000 mg/Empty Bag 100 ml @ 400 mls/hr Q8 IV 06/20/17 22:00 06/21/17 21:59 Morphine Sulfate (MoRPHine SULFATE INJ) 2 mg Q2HWA PRN IV 06/20/17 15:30 07/04/17 15:29 Naloxone HCl (Narcan Inj) 0.1 mg Q2M PRN IV 06/20/17 15:30 07/20/17 15:29 Magnesium Hydroxide (Milk Of Magnesia Susp) 30 ml Q6H PRN PO 06/20/17 15:30 07/20/17 15:29 Bisacodyl (Dulcolax Supp) 10 mg DAILY PRN OR 06/20/17 15:30 07/20/17 15:29 Sodium Biphosphate/ Sodium Phosphate (Fleet Enema) 132 ml DAILY PRN OR 06/20/17 15:30 07/20/17 15:29 Senna (Senokot Tab) 17.2 mg HS PO 06/20/17 21:00 07/20/17 20:59 UNV Docusate Sodium (coLACE CAP) 100 mg BID PO 06/20/17 21:00 07/20/17 20:59 UNV Multivitamins (Multivitamin Tab) 1 tab DAILY PO 06/21/17 09:00 07/21/17 08:59 UNV Cefazolin Sodium 3000 mg/Syringe 22.5 ml @ 4.5 mls/min Q8H IV 06/20/17 22:00 06/21/17 06:04 Benazepril HCl (Lotensin Tab) 20 mg QAM PO 06/21/17 09:00 07/21/17 08:59 Review of Systems Constitutional: No fever, sweats or chills Eyes: No diplopia, no worsening or blurred vision ENT: normal hearing, no trouble swallowing Respiratory: + cough and feels slight chest tightness, no chest pain, + yellow sputum, dyspnea at rest or on exertion Cardiovascular: No chest pain or palpitations Abdomen: No pain, nausea, vomiting, diarrhea or constipation Musculoskeletal: No joint pain, calf pain, swelling Neurologic: No weakness, + numbness into R hand, no balance problems Psychiatric: No anxiety or depression Skin: No rash or itch Physical Exam Date Time Temp Pulse Resp B/P (MAP) Pulse Ox O2 Delivery O2 Flow Rate FiO2 06/20/17 18:29 74 96 Nasal Cannula 3.0 06/20/17 18:16 36.9 79 16 120/81 (94) 94 Nasal Cannula 3.0 06/20/17 18:05 Nasal Cannula 3.0 06/20/17 17:49 36.6 59 18 123/71 (88) 91 Nasal Cannula 4.0 06/20/17 17:25 36.5 63 16 128/68 (88) 92 Nasal Cannula 3.0 4/27/18 17:15 92 3.0 06/20/17 17:06 120/71 06/20/17 17:03 61 13 91 06/20/17 17:03 62 13 06/20/17 17:01 126/73 06/20/17 16:58 83 11 93 06/20/17 16:58 76 11 06/20/17 16:56 132/71 06/20/17 16:53 82 18 92 06/20/17 16:53 81 18 06/20/17 16:52 36.5 75 16 132/71 (86) 92 2 06/20/17 16:51 137/78 06/20/17 16:48 68 10 06/20/17 16:48 69 10 91 06/20/17 16:47 69 11 92 06/20/17 16:47 67 11 06/20/17 16:46 135/79 06/20/17 16:42 91 21 91 06/20/17 16:42 87 21 06/20/17 16:41 123/75 06/20/17 16:37 84 19 06/20/17 16:37 83 19 97 06/20/17 16:36 137/81 06/20/17 16:32 83 15 93 06/20/17 16:32 83 15 06/20/17 16:31 118/75 06/20/17 16:27 86 22 92 06/20/17 16:27 85 22 06/20/17 16:26 124/71 06/20/17 16:22 81 16 06/20/17 16:22 81 16 93 06/20/17 16:21 135/76 06/20/17 16:17 79 16 93 06/20/17 16:17 80 16 06/20/17 16:16 161/85 06/20/17 16:12 80 20 06/20/17 16:12 80 20 93 06/20/17 16:11 78 18 06/20/17 16:11 77 18 150/83 93 06/20/17 16:06 80 17 06/20/17 16:06 80 17 127/81 95 06/20/17 16:02 137/83 06/20/17 16:01 84 19 164/141 91 06/20/17 16:01 86 19 06/20/17 15:56 81 23 06/20/17 15:56 80 23 149/84 96 4/27/18 15:51 84 18 128/77 95 06/20/17 15:51 85 18 06/20/17 15:47 132/91 06/20/17 15:46 86 20 06/20/17 15:46 86 20 95 06/20/17 15:46 36.6 85 16 132/91 (113) 95 Oxymask 10 06/20/17 11:35 37 85 20 142/91 94 Room Air General: awake, alert, no apparent distress, morbidly obese with BMI=56 Head: Normocephalic, atraumatic ENT: PERRL, EOMI, no pharyngeal exudate, mucous membranes moist Chest: +faint expiratory wheeze throughout, on 2L via NC, no other adventitious breath sounds Cardiac: Regular rate and rhythm, no murmur, no JVD, normal peripheral pulses, good capillary refill Abdominal: NABS x 4 quadrants, soft, nontender to palpation, no rebound, guarding or tenderness Extremities: R shoulder with bandage c/d/i, sling in place, ice pack, otherwise normal inspection, no peripheral edema or erythema, calfs nontender to palpation Psych: Normal mood and affect Neuro: AAO x 3, strength intact bilaterally and related 5/5, no motor deficits, speech is clear, no peripheral sensory deficits in BLE or LUE. Slight peripheral sensory deficit in the R fingertips. Assessment & Plan This is a 56 yo M with PMHx of hyperlipidemia, hypertension, GERD, some respiratory disease and hx of blood clots, who presented for elective R shoulder arthroplasty by Dr. Vo on 06/20/17. S/p R total shoulder arthroplasty -pain management, bowel regimen, dvt ppx per primary team -pt/ot HLD HTN - continue home antihypertensives: metoprolol succ 50 mg daily, lotensin 20 mg daily, amlodipine 10 mg daily, lasix 40-80 mg as needed 3x per week for edema in the BLE - he reports has not used this recently although notices some swelling in his legs as he was recently visiting family. - cont statin SHANITA on cpap - Continue cpap which he has brought from home. - Will order nebulizer treatment at this time for shortness of breath - recieved ancef intraop - follow for any clinical respiratory changes. If worsens then would obtain a CXR. GERD - cont PPI Morbid obesity - Heart healthy diet, encourage diet and exercise prior to discharge. DVT ppx: teds, scds CODE STATUS: FULL CODE Dispostion: From home, lives with I personally interviewed and examined the patient. I agree with history of present illness and physical exam mentioned above, I also performed my own history taking and examination. Past medical history and review of system has been obtained by myself I reviewed all pertinent labs and studies Reviewed current medications I discussed and formulated of the assessment and plan mentioned above. Please refer to the Summary mentioned below. 56-year-old man with dyslipidemia, hypertension, GERD and previous bronchitis presented to the hospital for an elective right shoulder arthroplasty. After the surgery patient had some sort shortness of breath, oxygen saturation within normal limits but patient said that he had experienced that before and symptoms resolved with bronchodilators, patient had a nebulizer treatment and all his symptoms resolved. Currently feeling better, was possible bronchospasm. Tolerated the procedure well, physical therapy and DVT prophylaxis as per primary team. General Appearance: not in acute distress Eyes: normal Sclerae, extraocular muscle intact ENT: hearing grossly normal Neck: supple Respiratory/Chest: normal air entry bilateral ,no respiratory distress, no accessory muscle use Cardiovascular: regular rate, rhythm, no murmur Abdomen: non tender, soft, no masses Extremities: no edema musculoskeletal: no significant swelling or inflammation in any joint., Right shoulder his right wrapped, Neurologic/Psychiatric: Awake alert oriented times place and person moves all extremities sensation intact cranial nerves II-12 appear to be intact Skin: normal color, warm/dry, no rash Karina Severino MD, [facility] hospitalist group
[2017-06-20] MEDS ORDERED: ALBUT/IPRATROP 3MG/0.5MG NEB 3 ML VIAL INH PRN (19:30)
[2017-06-20 20:35] LABS: CREATININE 0.9 mg/dl (0.60-1.40)
[2017-06-20] MEDS: DOCUSATE SODIUM 100 MG CAP PO SCH (20:42)
[2017-06-20] MEDS ORDERED: NURSING DECISION MEDICATION ORDER SCH (20:45)
[2017-06-20] MEDS: POTASSIUM CHLORIDE INJ 10 MEQ in SODIUM CHLORIDE 0.9% 1000ML 1,000 ML IV SCH (20:47)
[2017-06-20] MEDS ORDERED: SENNA 8.6 MG TAB PO SCH (21:00)
[2017-06-20] MEDS ORDERED: MONTELUKAST SOD 10 MG TAB PO SCH (21:00)
[2017-06-20] MEDS ORDERED: COUGH DROP (SUGAR FREE) LOZ 24 LOZ/1 BOX LOZ PRN (21:00)
[2017-06-20] MEDS ORDERED: ATORVASTATIN 10 MG TAB PO SCH (21:00)
[2017-06-20] MEDS ORDERED: TRIAMCINOLONE ACET NASAL SPRAY 10.8ML BTL NAE SCH (21:00)
[2017-06-20] MEDS: KETOROLAC TROMETHAMINE 30 MG/ML VIAL IV. SCH (21:41)
[2017-06-20] MEDS: ACETAMINOPHEN IV 1,000 MG in EMPTY BAG 0 ML IV SCH (21:41)
[2017-06-20] MEDS: CEFAZOLIN IV 3,000 MG in SYRINGE 0 ML IV SCH (21:41)
[2017-06-21 03:10] VITALS: BP 134/77; PULSE 57; TEMP 36.8; O2SAT 97
[2017-06-21] MEDS: KETOROLAC TROMETHAMINE 30 MG/ML VIAL IV. SCH ×2 (03:12→08:51)
[2017-06-21] MEDS: POTASSIUM CHLORIDE INJ 10 MEQ in SODIUM CHLORIDE 0.9% 1000ML 1,000 ML IV SCH (05:12)
[2017-06-21] MEDS: CEFAZOLIN IV 3,000 MG in SYRINGE 0 ML IV SCH (05:12)
[2017-06-21] MEDS: ACETAMINOPHEN IV 1,000 MG in EMPTY BAG 0 ML IV SCH (05:13)
[2017-06-21 05:53] LABS: HEMATOCRIT 38.6 % (42-52); HEMOGLOBIN 12.9 g/dL (14.0-18.0); MEAN CORPUSCULAR HEMOGLOBIN 28.7 pg (25-34); MEAN CORPUSCULAR HGB CONC 33.4 g/dl (32-36); MEAN PLATELET VOLUME 10.8 fL (7.4-10.4); PLATELET COUNT 196 K/uL (130-400); RED CELL DISTRIBUTION WIDTH CV 14.8 % (11.5-14.5); RED CELL DISTRIBUTION WIDTH SD 47.1 fL (36.4-46.3)
[2017-06-21 06:24] LABS: CALCIUM 7.9 mg/dl (8.5-10.1); CREATININE 0.96 mg/dl (0.60-1.40)
[2017-06-21 07:11] VITALS: BP 118/71; PULSE 63; TEMP 36.8; O2SAT 95
[2017-06-21] MEDS ORDERED: RXC5 PO (08:40)
--- NOTE | 2017-06-21 08:41 | Discharge Instructions ---
Discharge Instructions Date of Service Jun 21, 2017. Admission Reason for Admission: Right Shoulder Degenerative Joint Disease Discharge Discharge Diagnosis / Problem: Right Total Shoulder Discharge Goals Goal(s): Decrease discomfort, Improve function Activity Recommendations Activity Limitations: as noted below . Instructions / Follow-Up Instructions / Follow-Up Activity and Therapy Recommendations: * Wear your sling for 3 weeks, unless otherwise instructed. You may remove your sling to shower and to dress, but otherwise, you should be in your sling at all times, including while sleeping * The shoulder replacement is very stable and you can use your hand while in the sling * Physical Therapy should start about 3-5 days from your day of surgery. Therapy will last about 8-12 weeks * You were shown a series of exercises in the hospital. Do these exercises daily including the exercises you were shown in physical therapy. Medications: * Narcotic You will likely be sent home from the hospital with a prescription for the narcotic pain medication that worked best throughout your stay. * Other medications may be prescribed for specific circumstances. If you have any questions, please call the office at . * Resume previous home medications unless otherwise instructed Dressing Care: If the incision is not draining then you may leave the minerva open to air. If there is a little bit of drainage or if the minerva are getting stuck on your clothing then cover the incision with a dry dressing. The minerva will be removed at your 2 week follow-up appointment. Showering: You may shower 5 days from the day of surgery. Let the soapy shower water run over the minerva and pat them dry. Do not scrub or soak the incision. Things To Watch For: * Drainage from the incision site that occurs more than one week after your surgery. * Increased redness at the incision site. * Fever above 102 degrees Fahrenheit. * Unusual chest pain or shortness of breath. * Call [facility] at with any of the above problems Follow-Up Visit: Follow-up with Dr. Vo 2 weeks after your day of surgery. An appointment was probably scheduled when you signed-up for surgery in the office. If you have any questions call Office Instructions: More detailed instructions as well as Frequently Asked Questions were provided in a folder by our office when you signed-up for surgery. Please review these instructions when you get home. If you have any further questions or concerns, please feel free to call the office at [phone] Current Hospital Diet Patient's current hospital diet: Regular Diet Discharge Diet Recommended Diet: Regular Diet Procedures Procedures Performed: Right Total Shoulder Replacement, cemented Pending Studies Studies pending at discharge: no Medical Emergencies . Who to Call and When: Medical Emergencies: If at any time you feel your situation is an emergency, please call 911 immediately. . Non-Emergent Contact Non-Emergency issues call your: Surgeon Call Non-Emergent contact if: wound has increased drainage, wound has increased redness . "Provider Documentation" section prepared by Darío Vo. .
[2017-06-21] MEDS: DOCUSATE SODIUM 100 MG CAP PO SCH (08:52)
[2017-06-21] MEDS: OXYCODONE HCL IR 5 MG TAB (IMMEDIATE RELEASE) PO PRN ×2 (08:54→12:58)
[2017-06-21] MEDS ORDERED: AMLODIPINE BESYLATE 5 MG TAB PO SCH (09:00)
[2017-06-21] MEDS ORDERED: TIOTROPIUM BROMIDE 5 PUFF/90 MCG INH INH SCH (09:00)
[2017-06-21] MEDS ORDERED: BENAZEPRIL HCL 10 MG TAB PO SCH (09:00)
[2017-06-21] MEDS ORDERED: PANTOprazole SOD 40 MG TAB PO SCH (09:00)
[2017-06-21] MEDS ORDERED: MULTIVITAMIN TAB PO SCH (09:00)
[2017-06-21] MEDS ORDERED: METOPROLOL SUCC 50MG EXT REL TAB PO SCH (09:00)
--- NOTE | 2017-06-21 09:05 | PROGRESS NOTE ---
DATE: 06/21/2017 CHIEF COMPLAINT: Status post right total shoulder arthroplasty, postop day number 1. PROGRESS: Chano was seen and examined at bedside today. Overall, he is doing well. He is not having much pain in the shoulder. He did have an episode last night where he was having trouble breathing. The medicine team was consulted. He had a nebulizer treatment and was feeling much better. No other complaints. PHYSICAL EXAMINATION OF THE RIGHT SHOULDER: The dressing is clean and dry. He has an ice pack in place. He is wearing a sling as instructed. His radial, median, and ulnar nerves were checked and intact at his wrist. His axillary nerve was not checked yet. LABORATORIES: He has an H and H today of 12.9 and 38.6. His glucose is 147. His vital signs are all stable on room air and he is voiding on his own. IMAGING: X-rays postoperatively of the right shoulder show the prosthesis to be in anatomic alignment without any evidence of fracture, dislocation, or loosening. IMPRESSION: Status post right total shoulder arthroplasty, postoperative day number 1. PLAN: At this point, he is doing well and happy with his progress. He will be seen by physical therapy today for hand, wrist, elbow, and pendulum exercises. He will likely be discharged to home later this morning.
[2017-06-21 11:58] VITALS: BP 118/74; PULSE 70; O2SAT 98
[2017-06-21 12:12] VITALS: BP 118/74; PULSE 70; TEMP 36.8; O2SAT 98
--- NOTE | 2017-06-22 11:18 | DISCHARGE SUMMARY ---
DISCHARGE DIAGNOSIS: Primary osteoarthritis of the right shoulder. PROCEDURE: Right total shoulder arthroplasty on June 20, 2017, by Dr. Darío oV. DISCHARGE INSTRUCTIONS: 1. Oxycodone 5-10 mg every 4 hours as needed for pain. 2. Albuterol inhaler 2 puffs as needed. 3. Lotrel 1 capsule daily. 4. Amoxil 500 mg daily. 5. Lipitor 10 mg daily. 6. Nexium 40 mg daily. 7. Breo inhaler daily. 8. Lasix 80 mg daily. 9. Mobic 15 mg daily. 10. Toprol 50 mg daily. 11. Singulair 10 mg at night. 12. Spiriva inhaler daily. 13. Nasacort in the evening. 14. Continue all other over the counter vitamins and minerals supplementations. 15. Follow up with Dr. Vo in 2 weeks. 16. Call the office of Dr. Vo with any questions or concerns. 17. Right arm sling for 3 weeks. 18. Start physical therapy this week. HOSPITAL COURSE: Chano is a pleasant 56-year-old male who has been dealing with a several year history of right shoulder pain. He had it scoped about a year ago. The scope did show some arthritis. Unfortunately, arthritis continued to progress over the year's time. He elected to proceed with a right total shoulder arthroplasty. On June 20, 2017, he arrived at the [facility] and underwent a right total shoulder arthroplasty without complication. He had a general anesthetic and a right interscalene nerve block. Postoperatively, he was discharged to general orthopedic floor. His hospital course was uneventful. On postop day #1, his H&H were stable at 12.9 and 38.6. He was able to participate with physical therapy and doing hand, wrist, elbow, and pendulum exercises. His pain was well controlled and was subsequently discharged to home with the above instructions.
== END 2017-06-21 13:15 | disposition home health service (06) | DRG 483 ==
LOC: C.ACU 10:58 → C.3E 15:35 → ENRESERV 16:49
PROVIDERS: ADMIT Orthopaedic Surgery; ATTEND Orthopaedic Surgery
PROC: 0RRJ0JZ Replacement of Right Shoulder Joint with Synthetic Substitute, Open Approach (ICD-10-PCS; principal; 2017-06-20 13:20)
DX: M19.011 Primary osteoarthritis, right shoulder (principal); E66.01 Morbid (severe) obesity due to excess calories; Z68.43 Body mass index [BMI] 50.0-59.9, adult; E78.5 Hyperlipidemia, unspecified; I10 Essential (primary) hypertension; K21.9 Gastro-esophageal reflux disease without esophagitis; G47.33 Obstructive sleep apnea (adult) (pediatric); Z79.899 Other long term (current) drug therapy; Z86.718 Personal history of other venous thrombosis and embolism

== ENCOUNTER 2019-08-20 11:01 | Observation (INO) ==
--- NOTE | 2019-08-10 15:50 | PAT Medication Instructions ---
Medication Instructions Date of Service August 10, 2019 Home Medications acetaminophen 1,000 mg PO Q6H PRN amlodipine-benazepril 1 cap PO QAM coenzyme Q10 [CoQ-10] 100 mg PO BID diclofenac sodium 2 g TOPICAL QID PRN esomeprazole magnesium 40 mg PO QAM fluticasone furoate-vilanterol [Breo Ellipta] 1 inh INHALATION QAM furosemide 80 mg PO DAILY PRN tiotropium bromide [Spiriva with HandiHaler] 1 cap INHALATION QAM albuterol sulfate 1.25 mg INHALATION QID PRN albuterol sulfate 2 inh INHALATION Q6H PRN meloxicam 15 mg PO QAM metoprolol succinate 50 mg PO QAM montelukast 10 mg PO QAM multivitamin 1 tab PO QAM triamcinolone acetonide [Nasacort] 1 spray INTRANASAL HS ASK your surgeon for instructions meloxicam 15 mg PO QAM STOP taking 2 weeks before surgery coenzyme Q10 [CoQ-10] 100 mg PO BID STOP taking 24 hours before surgery diclofenac sodium 2 g TOPICAL QID PRN DO NOT take the morning of surgery montelukast 10 mg PO QAM multivitamin 1 tab PO QAM amlodipine-benazepril 1 cap PO QAM furosemide 80 mg PO DAILY PRN Take morning of surgery With a small sip of water, OTHERWISE NOTHING TO EAT OR DRINK AFTER MIDNIGHT: metoprolol succinate 50 mg PO QAM albuterol sulfate 1.25 mg INHALATION QID PRN (if needed) albuterol sulfate 2 inh INHALATION Q6H PRN (use if needed; please bring with you to hospital day of surgery if possible) acetaminophen 1,000 mg PO Q6H PRN (okay to take up to 4 hours prior to surgery if needed) esomeprazole magnesium 40 mg PO QAM fluticasone furoate-vilanterol [Breo Ellipta] 1 inh INHALATION QAM tiotropium bromide [Spiriva with HandiHaler] 1 cap INHALATION QAM Take evening before surgery triamcinolone acetonide [Nasacort] 1 spray INTRANASAL HS albuterol sulfate 1.25 mg INHALATION QID PRN (if needed) albuterol sulfate 2 inh INHALATION Q6H PRN (if needed) acetaminophen 1,000 mg PO Q6H PRN (if needed) Other Notes If you have any questions please call us at [phone] or [phone] or [phone] or [phone]
--- NOTE | 2019-08-11 12:19 | Anesthesiology Consultation ---
Date of Service August 11, 2019 Assessment & Plan (1) Encounter for pre-operative examination: Chart Review Chart Review: Pending: Refer to Additional Notes / Consult section (pending cardio clearance and Covid testing ) and Patient seen in Pre Admission Testing EKG does show T wave abnormality- referred to cardio for optimization. As of PAT appt 08/10/19, no travel to high risk/endemic areas. Educated on getting Covid order three days prior- pt aware and has surgeon order. Pt educated on importance of social distancing, self quarantining and wearing a mask if needs to go into public. Right TSA 06/20/17= Done under GA with Grade 3 view with Glidescope #4 with ETT 8.0. Weight limit exceeded on [employer] shoulder back rest- Dr. Vo was aware. Consults Requested cardiac (abnormal EKG ) Teaching & Discussion Pre-Anesthesia Teaching/Discussion Notes: Instructed NPO after midnight before surgery,except medications with 15 cc of water. Medication instructions provided according to the [facility] guidelines. History Surgery Operation Date: 08/20/19 08:30 Proposed Procedures p Left Total Shoulder Arthroplasty - Darío Vo, Height/Weight Height: 5 ft 10 in Weight: 162.5 kg Allergies Allergy/AdvReac Type Severity Reaction Status Date / Time No Known Allergies Allergy Verified 05/11/19 10:01 Medications Home Medications Medication Instructions Recorded Confirmed Last Taken acetaminophen 1,000 mg PO Q6H PRN 05/11/19 05/11/19 Unknown amlodipine-benazepril 1 cap PO QAM 05/11/19 05/11/19 Unknown coenzyme Q10 [CoQ-10] 100 mg PO BID 05/11/19 05/11/19 Unknown diclofenac sodium 2 g TOPICAL QID PRN 05/11/19 05/11/19 Unknown esomeprazole magnesium 40 mg PO QAM 05/11/19 05/11/19 Unknown fluticasone furoate-vilanterol 1 inh INHALATION QAM 05/11/19 05/11/19 Unknown [Breo Ellipta] furosemide 80 mg PO DAILY PRN 05/11/19 05/11/19 Unknown tiotropium bromide [Spiriva with 1 cap INHALATION QAM 05/11/19 05/11/19 Unknown HandiHaler] albuterol sulfate 1.25 mg INHALATION QID PRN 08/05/19 08/05/19 Unknown albuterol sulfate 2 inh INHALATION Q6H PRN 08/05/19 08/05/19 Unknown meloxicam 15 mg PO QAM 08/05/19 08/05/19 Unknown metoprolol succinate 50 mg PO QAM 08/05/19 08/05/19 Unknown montelukast 10 mg PO QAM 08/05/19 08/05/19 Unknown multivitamin 1 tab PO QAM 08/05/19 08/05/19 Unknown triamcinolone acetonide [Nasacort] 1 spray INTRANASAL HS 08/05/19 08/05/19 Unknown Past Medical History Medical History Arthritis Asthma well controlled, rarely uses albuterol inhaler. GERD (gastroesophageal reflux disease) Well controlled and stable Hx of deep venous thrombosis 06/2013 s/p knee surgery and sedentary. On AC x 6 months- then d/c'ed. No problems since. Has had subsequent surgeries without issues Hx of testicular cancer 2017, follows with oncology ([facility]). No chemo or XRT Hyperlipidemia no medications currently Hypertension Lung nodules recent findings, following with Oncology [facility]. recent chest/abd CT scans -- to follow with oncology 08/09/19. denies SOB or chest pain. Sleep apnea CPAP nightly Exercise / Class Metabolic Activity III < 4 Walking/Shop/Light housework (one flight of stairs- mild SOB, no chest pain) Past Family History Family History Mother FHx: breast cancer Other No family history of adverse response to anesthesia Past Surgical History Surgical History History of arthroscopy of right shoulder X3 History of right shoulder replacement History of surgical removal of ganglion cyst History of tonsillectomy and adenoidectomy History of total left knee replacement History of vasectomy Hx of colonoscopy Hx of left inguinal hernia repair Hx of removal of testicle Hx of right inguinal hernia repair Hx of umbilical hernia repair Nausea and vomiting after administration of anesthetic agent Past Anesthesia History No Hx of Anesthesia Complications and No Family Hx of Anesthesia Complications History of PONV No Hx of Motion Sickness and History of PONV (meds and scop patch work well ) Social History Smoking Status: Never smoker Do You Dip or Chew Tobacco: No Hx Alcohol Use: No Hx Substance Use: No substance use type: does not use Review of Systems Patient denies chest pain, shortness of breath, dyspnea on exertion, cough, wheezing, palpitations. No hx of seizures, stroke, GA. No hx of blood transfusions Physical Exam Vital Signs VITALS BP 143/86 P 63 TEMP 98.8 SP02 98% RESP 16 Constitutional + morbidly obese; no acute distress ENMT Mouth: no TMJ clicking Thyromental Distance: > or= 3.5 Finger Breadths (3.5) Mallampati Class: I Missing molars and capped molar Neck + short neck and + thick neck; neck extension not limited Respiratory normal respiratory effort; no respiratory distress Auscultation: lungs clear to auscultation bilaterally; no wheezes Cardiovascular Rate/Rhythm: regular rate and regular rhythm Heart Sounds: no murmur Vessels: no carotid bruit Musculoskeletal Spine: no pain with cervical ROM Neurologic moves all extremities Psychiatric Orientation: alert Testing Laboratory Results PT 10.4 Seconds (9.0-12.0) 08/11/19 12:02 INR 1.0 (0.9-1.1) 08/11/19 12:02 APTT 29.0 Seconds (21.0-31.0) 08/11/19 12:02 Blood Type O Positive 08/11/19 12:02 Antibody Screen NEGATIVE 08/11/19 12:02 08/02/19= WBC: 8.18 H/H: 15.9/49.2 PLATELETS: 236 SODIUM: 140 POTASSIUM: 4.9 CHLORIDE: 102 CO2: 27 BUN: 19 CREATININE: 0.8 GLUCOSE: 100 Electrocardiogram Date: 08/11/19 Findings: + NSR @ (61) Incomplete RBBB. T wave abnormality, consider inferior ischemia. Compared to EKG from May 14, 2016- T wave inversion now evident in inferior leads per cardio. Echocardiogram Date: 01/09/17 EF: 64% LV Function: normal Valvular Disease: + no significant valvular disease Other Testing Chest CT 08/03/19= Few scattered subcentimeter pulmonary nodules. Unremarkable large airways.
[2019-08-11 13:47] LABS: Prothrombin Time 10.4 Seconds (9.0-12.0)
--- NOTE | 2019-08-11 15:33 | Electrocardiogram Report ---
Test Reason : Blood Pressure : / mmHG Vent. Rate : 061 BPM Atrial Rate : 061 BPM P-R Int : 120 ms QRS Dur : 116 ms QT Int : 420 ms P-R-T Axes : 066 015 -21 degrees QTc Int : 422 ms Normal sinus rhythm Incomplete right bundle branch block T wave abnormality, consider inferior ischemia Abnormal ECG When compared with ECG of 14-MAY-2016 15:03, T wave inversion now evident in Inferior leads Confirmed by Truong Berrios ([id number]) on 08/11/2019 3:33:25 PM Referred By: Darío Vo Confirmed By:John Berrios
--- NOTE | 2019-08-19 06:55 | History & Physical Report ---
Date of Service August 19, 2019 Assessment & Plan (1) DJD of left shoulder: We will proceed with a left total shoulder arthroplasty. Postoperatively he will be placed in a sling and kept overnight in the hospital for postoperative medical management. He plans to go to outpatient physical therapy in [place] upon discharge. Chano is a high risk for joint replacement surgery due to his morbid obesity and a BMI of 51.4. Present on Admission?: Yes History of Present Illness Chief Complaint: Primary osteoarthritis of the left shoulder Primary Care Provider: Carola Paez Simon Madden is a 58-year-old male who is been having a 1 year history of increasing left shoulder pain. He states that he injured his left shoulder back in June 2018 when he tripped over a car lift and landed on his left shoulder. 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 X-rays and clinical examination have been diagnostic for advanced osteoarthritis of a left shoulder. I did a right total shoulder arthroplasty on him 2 years ago and he did very well with that. After failing extensive conservative treatment, he elected to proceed with a left total shoulder arthroplasty. Allergies Allergy/AdvReac Type Severity Reaction Status Date / Time No Known Allergies Allergy Verified 05/11/19 10:01 Home Medications Home Medications Medication Instructions Recorded Confirmed Type acetaminophen 1,000 mg PO Q6H PRN 05/11/19 05/11/19 History amlodipine-benazepril 1 cap PO QAM 05/11/19 05/11/19 History coenzyme Q10 [CoQ-10] 100 mg PO BID 05/11/19 05/11/19 History diclofenac sodium 2 g TOPICAL QID PRN 05/11/19 05/11/19 History esomeprazole magnesium 40 mg PO QAM 05/11/19 05/11/19 History fluticasone furoate-vilanterol 1 inh INHALATION QAM 05/11/19 05/11/19 History [Breo Ellipta] furosemide 80 mg PO DAILY PRN 05/11/19 05/11/19 History tiotropium bromide [Spiriva with 1 cap INHALATION QAM 05/11/19 05/11/19 History HandiHaler] albuterol sulfate 1.25 mg INHALATION QID PRN 08/05/19 08/05/19 History albuterol sulfate 2 inh INHALATION Q6H PRN 08/05/19 08/05/19 History meloxicam 15 mg PO QAM 08/05/19 08/05/19 History metoprolol succinate 50 mg PO QAM 08/05/19 08/05/19 History montelukast 10 mg PO QAM 08/05/19 08/05/19 History multivitamin 1 tab PO QAM 08/05/19 08/05/19 History triamcinolone acetonide [Nasacort] 1 spray INTRANASAL HS 08/05/19 08/05/19 History Past Med/Surg History Medical History Arthritis Asthma well controlled, rarely uses albuterol inhaler. GERD (gastroesophageal reflux disease) Well controlled and stable Hx of deep venous thrombosis 06/2013 s/p knee surgery and sedentary. On AC x 6 months- then d/c'ed. No problems since. Has had subsequent surgeries without issues Hx of testicular cancer 2018, follows with oncology (Josr Edwards). No chemo or XRT Hyperlipidemia no medications currently Hypertension Lung nodules recent findings, following with Oncology [facility] [place]. recent chest/abd CT scans -- to follow with oncology 08/09/19. denies SOB or chest pain. Sleep apnea CPAP nightly Surgical History History of arthroscopy of right shoulder X3 History of right shoulder replacement History of surgical removal of ganglion cyst History of tonsillectomy and adenoidectomy History of total left knee replacement History of vasectomy Hx of colonoscopy Hx of left inguinal hernia repair Hx of removal of testicle Hx of right inguinal hernia repair Hx of umbilical hernia repair Nausea and vomiting after administration of anesthetic agent Family History Mother FHx: breast cancer Other No family history of adverse response to anesthesia Social History Preferred Language: Armenian Communication Ability: Effective Lance Crewmember Required: No Beliefs That Will Affect Care: None Current Living Situation: Spouse Feels Safe at Home: Yes Smoking Status: Never smoker Second Hand Exposure: Yes (PARENTS SMOKED) ; Hx Alcohol Use: No Hx Substance Use: No Review of Systems Review of Systems: All systems reviewed & are unremarkable except as noted in HPI & below Physical Exam Constitutional: WD/WN, vitals as above Eyes: PERRL, conjunctivae normal, anicteric sclerae ENMT: external ear and nose normal, oropharynx normal Neck: trachea midline, no thyromegaly Respiratory: normal respiratory effort Cardiovascular: RRR, no murmur, no edema Gastrointestinal (Abdomen): normal bowel sounds, soft, nontender, no hepatosplenomegaly Musculoskeletal: Physical examination of the left shoulder reveals decreased range of motion and crepitis throughout. There is good strength with full can testing and external rotation. There is tenderness palpation along the anterior glenohumeral joint line. The right upper extremity is neurovascularly intact. Psychiatric: A+Ox3, euthymic affect Results & Data Results & Data ([facility]) Diagnostic Findings Radiographs of the left shoulder show osteoarthritis of the glenohumeral joint. There is joint space narrowing, osteophyte formation, and [id number] articulation. PG Care Time/CCT Total # of Minutes Spent Total Time Spent with Patient: Total time spent is greater than 50% in coordination of care (as documented) at patient's floor/unit and/or counseling patient: Coding Level of Care Code 95832 Initial Inpt Care Lvl 3 Diagnoses DJD of left shoulder M19.012
[~2019-08-20 11:01] MED LIST changes: -ACET-1256 PO; -ALBUTEROL NEB INH; -AMLO10CA2 PO; -AMOX500C3 PO; -ATOR10TA82 PO; -ATROPINE SULFATE 0.1 MG/ML 5ML SYR IV PRN; +CEFAZOLIN 3000MG 72.5 ML IV SCH; -CEFAZOLIN 3000MG IV PUSH 22.5 ML IV SCH; -COEN1CAP17 PO; -DICL1GEL12 TOP; -EpHEDrine SULFATE INJ 50 MG/ML AMP IV PRN; -FLUT1INH INH; -FURO40TA3 PO; +GABAPENTIN 600 MG DOSE PO SCH; -GABAPENTIN 600 MG PO SCH; -HYDROmorphone INJ 2 MG/ML SYR/VIAL IV PRN; -LACTATED RINGER'S 1000ML IV SCH; +LR 15ML/HR IV SCH; +LR 60ML/HR IV SCH; -MELO-84 PO; -METO-217 PO; -MONT1TAB3 PO; -MULTTAB5 PO; -NEOM1SOL25 OTB; -NXM/40 PO; -ONDANSETRON INJ 2 MG/ML 2 ML VIAL IV PRN; -PHENYLEPHRINE 100MCG/ML 5ML SYR IV PRN; -ROPIVACAINE 0.5% 5 MG/ML 30 ML VIAL ONE; +ROPIVACAINE 0.5% HCL/PF 150 MG, BUPIVACAINE 0.5% MPF 30 ML, EPINEPHrine 30MG/30ML (OR U... INFIL SCH; -ROPIVACAINE 5MG/ML 30 ML 150 MG, BUPIVACAINE 0.5% MPF INJ 30 ML, EpINEphrine HCL INJ 0.... INFIL SCH; -SPRIN/30 PO; +TRANEXAMIC ACID 1,000 MG **IV Intra-op IV SCH; +TRANEXAMIC ACID 1,000 MG **IV Pre-op IV SCH; -TRIA1SPR4 NAE; -VNTHFA/IN INH; +dexAMETHasone 4 MG TAB PO SCH
[2019-08-20] MEDS ORDERED: BUPIVACAINE 0.5 % 5 MG/1 ML PF 10ML VIAL ONE (11:16)
[2019-08-20] MEDS ORDERED: PROPOFOL IV EMULSION 10 MG/ML 20 ML VIAL IV ONE (11:24)
[2019-08-20] MEDS ORDERED: GLYCOPYRROLATE 0.2 MG/ML VIAL ONE (11:24)
[2019-08-20] MEDS ORDERED: MIDAZOLAM HCL 1 MG/ML 2ML VIAL ONE (11:24)
[2019-08-20] MEDS ORDERED: LIDOCAINE HCL 2% 2 ML VIAL/AMP(20MG/ML) INFIL ONE (11:24)
[2019-08-20] MEDS ORDERED: ONDANSETRON INJ 2 MG/ML 2 ML VIAL ONE (11:24)
[2019-08-20] MEDS ORDERED: DEXAMETHASONE SOD INJ 4 MG/ML VIAL ONE ×2 (11:24→12:36)
[2019-08-20] MEDS ORDERED: fentaNYL citrate 100 MCG/2 ML VIAL ONE (11:24)
[2019-08-20] MEDS ORDERED: NEOSTIGMINE METHYLSULFATE 5 MG/5 ML SYR ONE (11:24)
[2019-08-20] MEDS ORDERED: ROCURONIUM BROMIDE 10 MG/ML 5 ML VIAL IV ONE (11:25)
[2019-08-20] MEDS ORDERED: LARYING-O-JET KIT (LTA) ONE (11:25)
--- NOTE | 2019-08-20 11:33 | History & Physical Bridge Note ---
Date of Service August 20, 2019 History & Physical Bridge Note I have examined the patient, reviewed the History & Physical and in the interval since the performance of the History & Physical I have noted the following changes of clinical significance: no changes noted
[2019-08-20] MEDS ORDERED: dexAMETHasone 4 MG TAB PO ONE (11:41)
[2019-08-20] MEDS ORDERED: FAMOTIDINE 20 MG TAB ONE (11:42)
[2019-08-20] MEDS ORDERED: ACETAMINOPHEN 500 MG TAB ONE (11:42)
[2019-08-20] MEDS ORDERED: GABAPENTIN 300 MG CAP ONE (11:42)
[2019-08-20] MEDS ORDERED: TRANEXAMIC ACID / 0.7% NACL 1000MG/100ML BAG IV ONE (11:42)
[2019-08-20] MEDS ORDERED: CEFAZOLIN 3000MG/72.5 ML BAG IV ONE (11:45)
[2019-08-20] MEDS ORDERED: fentaNYL citrate 100 MCG/2 ML VIAL IV PRN (11:51)
[2019-08-20] MEDS ORDERED: LABETALOL HCL IV 5 MG/ML 20ML IV PRN (11:51)
[2019-08-20] MEDS ORDERED: HYDROmorphone INJ 1 MG/ML SYRINGE IV PRN (11:51)
[2019-08-20] MEDS ORDERED: ATROPINE SULFATE 0.1 MG/ML 10ML SYR IV PRN (11:51)
[2019-08-20] MEDS ORDERED: PHENYLEPHRINE 100MCG/ML 5ML SYR IV PRN (11:51)
[2019-08-20] MEDS ORDERED: MEPERIDINE HCL 25 MG/ML CARP/VIAL IV PRN (11:51)
[2019-08-20] MEDS ORDERED: ePHEDrine sulfate 50 MG/ML AMP IV PRN (11:51)
[2019-08-20] MEDS ORDERED: ONDANSETRON INJ 2 MG/ML 2 ML VIAL IV PRN ×2 (11:51→17:15)
[2019-08-20] MEDS ORDERED: ORTHO JOINT ANESTHETIC ONE (11:54)
[2019-08-20] MEDS ORDERED: SCOPOLAMINE 1.5 MG TDSY TD ONE ×2 (12:03→13:00)
[2019-08-20] MEDS ORDERED: ROPIVACAINE 0.5% 5 MG/ML 30 ML VIAL ONE (12:36)
[2019-08-20] MEDS ORDERED: EPINEPHrine INJ 1 MG/ML AMP ONE (12:37)
[2019-08-20] MEDS ORDERED: cloNIDine HCL 100 MCG/ML SYR ONE (12:37)
[2019-08-20] MEDS ORDERED: SUCCINYLCHOLINE CHLORIDE 20 MG/ML 10 ML VIAL IV ONE (14:27)
--- NOTE | 2019-08-20 15:36 | Operative Report ---
PG Post Operative Report Pre & Post Diagnosis Operation Date: 08/20/19 13:00 Pre-Op Diagnosis: Left Shoulder Degenerative Joint Disease with tendinopathy of the long head of the biceps tendon Post-Op Diagnosis: Left Shoulder Degenerative Joint Disease with tendinopathy of the long head of the biceps tendon I identified the patient and participated in the time-out.: Yes Procedure Operation Date: 08/20/19 13:00 Actual Procedures p Left Total Shoulder Arthroplasty with open biceps tenodesis as a separate procedure (modifier 59) (Left) - Darío Vo DO Surgeon Darío Vo, Labelling Machine Operator Darío Monahan PAC Estimated Blood Loss 50 Findings Consistent with Post-Op Diagnosis Specimens Left humeral head Complications none Disposition Disposition: Recovery Room Indications Chano is a pleasant 58-year-old male who has been dealing with increasing left shoulder pain. He claims it started when he tripped and fell at work. X-rays and clinical examination have been diagnostic for advanced arthritis of the left shoulder. After failing conservative treatment, he elected proceed with a left shoulder arthroplasty. Description of Procedure A CPT code modifier 59: The long head of the biceps tendon was enlarged and inflamed consistent with tendinopathy. A tenodesis was opted. This was a separate and distinct portion of the procedure. For these reasons, a CPT code modifier 59 will be added to this case. Implants used: I used a Biomet Comprehensive total shoulder arthroplasty system with a size 13 press fit micro-humeral stem, a size 46 x 18 eccentric humeral head, and a medium size glenoid with a Regenerex peg. The glenoid was cemented in place with Palacos G cement. Chano arrived at [facility] for the above procedure. He was seen in the preoperative holding area and the operative extremity was identified and signed. He was given a preoperative antibiotic, TXA, and an interscalene nerve block. He was taken back to the operating room, laid on table in supine position, and put under general anesthesia. He was then put into the beachchair position. The shoulder was then prepped and draped in sterile fashion. A timeout was done and the patient and the operative extremity was properly identified. A deltopectoral approach was used. Dissection was taken down through the fascia and the deltoid was retracted laterally and the conjoined tendon was retracted medially. The anterior shoulder was exposed. The biceps groove was opened up and the biceps tendon was examined extensively. The biceps tendon demonstrated enlargement and inflammatory changes consistent with longstanding inflammation in the context of osteoarthritis. The long head of the biceps tendon was then tenodesed to the upper border of the pectoralis major. This was a separate and distinct portion of the procedure. The subscapularis was then released off the lesser tuberosity with a centimeter of cuff tissue remaining. The inferior capsule was released and the humeral head was dislocated. The rotator cuff was inspected and intact. A canal finding reamer was sent down the center of the humeral canal. Sequential reaming up to a size 13 reamer was done. Offset reamer a proximal humeral resection guide was placed. The proximal humerus was resected at 135 of inclination and 30 of retroversion. Inferior osteophytes were then removed and the glenoid was exposed. Time was spent doing an appropriate labral release. The glenoid measured to be a size medium. A 3.2 mm Steinmann pin was placed in the central hole of the glenoid vault pin guide. The glenoid was then reamed with a propeller reamer. The central post cutter was then used to prepare for the central boss. The cannulated peripheral peg drill guide was then placed and 3 peg holes were drilled. The final size medium glenoid was then cemented in place with Palacos G cement. Surrounding soft tissues were then injected with 100 cc of an orthopedic pain control cocktail. Once cement had dried the proximal humerus was once again exposed. Sequential broaching of the humerus up to a size 13 broach was done. Off that broach a size 46 x 18 eccentric humeral head was trialed. The shoulder was then reduced, brought through a full range of motion, and felt to be stable. The shoulder was then dislocated and the broach was removed. The final size 13 micro humeral stem implant was then impacted into place. A size 46 x 18 eccentric humeral head was then impacted onto the humeral stem. The shoulder was then reduced and once again brought through a full range of motion and felt to be stable. The subscapularis was then tenodesed back to the lesser tuberosity with transosseous FiberWire sutures and side to side sutures with the arm in 45 of external rotation. 2 sutures were placed in the lateral rotator interval. A dilute betadyne lavage was then done for 3 minutes. The joint was then irrigated with normal saline solution. Hemostasis was obtained. The interval was closed with 2-0 Vicryl suture. The skin was closed with 2-0 Vicryl and minerav. A soft dressing was placed and the arm was rested in a regular arm sling. He was then extubated and transferred to a hospital bed. He was taken to the postanesthesia care unit in stable condition. He tolerated the procedure well. Darío Monahan PA-C, was present for the entire procedure. He was critical for patient positioning, prepping, draping, retraction exposure, wound closure and application of sterile dressing. I attest to the content of the Intraoperative Record and any orders documented therein. Any exceptions are noted below.
[2019-08-20] MEDS ORDERED: CHECK SCOPOLAMINE PATCH PLACEMENT SCH (16:00)
--- NOTE | 2019-08-20 16:33 | XRay Report ---
XR shoulder LT min 2V routine CLINICAL HISTORY: Post shoulder surgery COMPARISON: 03/30/2019 DISCUSSION: Anatomic alignment post total left shoulder arthroplasty. Could contact between prostheti c and underlying bone. Expected postoperative soft tissue change. IMPRESSION: Anatomic alignment post total left shoulder arthroplasty. ACT 112: Negative or not required by law. The above report was generated using voice recognition software. It may contain grammatical, syntax or spelling errors. Electronically signed by: Bill Ward M.D. 08/20/2019 4:31 PM
[2019-08-20] MEDS ORDERED: FUROSEMIDE 80 MG TAB PO PRN (17:15)
[2019-08-20] MEDS ORDERED: NALOXONE HCL 0.4 MG/1 ML VIAL/CARP IV PRN (17:15)
[2019-08-20] MEDS ORDERED: MAGNESIUM HYDROXIDE SUSP 30 ML UDC PO PRN (17:15)
[2019-08-20] MEDS ORDERED: bisacodyL 10 MG SUPP PR PRN (17:15)
[2019-08-20] MEDS ORDERED: METOCLOPRAMIDE HCL INJ 5 MG/ML 2 ML VIAL IV PRN (17:15)
[2019-08-20] MEDS ORDERED: HYDROmorphone INJ 0.5 MG/0.5 ML SYR IV PRN (17:15)
[2019-08-20] MEDS ORDERED: ALBUTEROL HFA 8 GM INHALER INH PRN (17:30)
--- NOTE | 2019-08-20 17:32 | Anesthesiology Progress Note ---
Date of Service August 20, 2019 Anesthesia Post Procedure Vital Signs Vital Signs: Temp Pulse Pulse Resp BP BP Pulse Ox 08/20/19 17:16 37.0 C 77 18 107/74 94 08/20/19 16:50 80 19 115/70 94 08/20/19 16:40 36.3 C L 82 21 115/72 93 08/20/19 16:30 80 20 127/74 92 08/20/19 16:20 78 21 117/70 94 08/20/19 16:10 81 18 120/75 96 08/20/19 16:03 36.1 C L 77 17 123/77 99 08/20/19 12:08 68 18 154/91 H 97 08/20/19 11:32 37.0 C 72 20 165/97 H 96 Pain Intensity Left Hip: Pain Intensity: 6 Transfer of Care Handoff Completed per policy Notes Mental Status: alert / awake / arousable and participated in evaluation Patient Amnestic to Procedure: Yes Nausea / Vomiting: adequately controlled Pain: adequately controlled Airway Patency, RR, SpO2: stable & adequate BP & HR: stable & adequate Hydration State: stable & adequate Anesthetic Complications: no major complications apparent and Pt Satisfied with anesthetic care
[2019-08-20] MEDS ORDERED: ALBUTEROL 0.083% NEBU SOLN 3 ML VIAL INH PRN (17:35)
[2019-08-20] MEDS: CEFAZOLIN 2000MG 2,000 MG/15 ML SYR IV SCH (20:25)
[2019-08-20] MEDS: KETOROLAC 30 MG/ML VIAL IV SCH ×2 (20:26→22:59)
[2019-08-20] MEDS: ACETAMINOPHEN 500 MG TAB PO SCH (20:27)
[2019-08-20] MEDS: SODIUM CHLORIDE 0.9% 1000ML 1,000 ML IV SCH (20:30)
[2019-08-20] MEDS: DOCUSATE SODIUM 100 MG CAP PO SCH (20:32)
[2019-08-20] MEDS ORDERED: TRIAMCINOLONE ACET NASAL SPRAY 10.8ML BTL SCH (21:00)
[2019-08-20] MEDS ORDERED: SENNA 8.6 MG TAB PO SCH (21:00)
[2019-08-21] MEDS: CEFAZOLIN 2000MG 2,000 MG/15 ML SYR IV SCH (04:59)
[2019-08-21] MEDS: KETOROLAC 30 MG/ML VIAL IV SCH ×2 (05:03→11:11)
[2019-08-21] MEDS: ACETAMINOPHEN 500 MG TAB PO SCH (05:04)
[2019-08-21] MEDS: SODIUM CHLORIDE 0.9% 1000ML 1,000 ML IV SCH (05:47)
[2019-08-21 06:43] LABS: Basophils # (auto) 0.01 K/uL (0-0.2); Basophils % (auto) 0.1 %; Hematocrit (blood only) 41.8 % (42-52); Hemoglobin 13.7 g/dL (14.0-18.0); Immature Granulocytes # (auto) 0.02 K/uL (0.00-0.02); Immature Granulocytes % (auto) 0.2 %; Lymphocytes # (auto) 1.04 K/uL (1.2-3.4); Lymphocytes % (auto) 9.2 %; Mean Corpuscular Hemoglobin 28.9 pg (25-34); Mean Corpuscular Hgb Conc 32.8 g/dL (32-36); Mean Corpuscular Volume 88.2 fL (80-100); Mean Platelet Volume 10.5 fL (7.4-10.4); Monocytes % (auto) 5.3 %; Neutrophils # (auto) 9.61 K/uL (1.4-6.5); Neutrophils % (auto) 85.2 %; Platelet Count 216 K/uL (130-400); RDW Coefficient of Variation 14.2 % (11.5-14.5); RDW Standard Deviation 45.7 fL (36.4-46.3); Red Blood Count 4.74 M/uL (4.7-6.1); White Blood Count 11.28 K/uL (4.8-10.8)
[2019-08-21 07:26] LABS: Calcium 8.5 mg/dl (8.5-10.1); Creatinine Clr Calc Pharmacy 123.5 ml/min; Est GFR (African American) 99.2; Est GFR (Non-African American) 85.6; Potassium 4.1 mmol/L (3.5-5.1)
--- NOTE | 2019-08-21 07:30 | Orthopedic Progress Note ---
Date of Service August 21, 2019 Assessment & Plan (1) History of left shoulder replacement: Overall he is doing very well. Is not having any pain in the left shoulder. He will be seen by physical therapy this morning for ambulation and range of motion exercises. He can be discharged home later today. He will follow-up with orthopedics in 2 weeks. Present on Admission?: Yes Subjective Chano was seen and examined at bedside this morning. Overall he is doing very well. Is not having any pain in the left shoulder. He was able to get some sleep last night. He has no complaints. Physical Exam Musculoskeletal: On physical examination of the left shoulder, the dressing is clean and dry. His radial, median, and ulnar nerves are checked and intact his wrist. His axillary nerve was not checked yet. Results & Data ([facility]) Vital Signs (Past 12 Hours) Vital Signs Temp Pulse Pulse Resp BP Pulse Ox 08/21/19 03:51 94 08/21/19 03:50 36.4 C L 55 L 18 126/78 88 L 08/20/19 23:01 36.4 C L 60 18 104/66 94 08/20/19 20:08 36.7 C 61 18 108/62 92 Laboratory Results H & H 08/21/19 Range/Units 06:30 Hgb 13.7 L (14.0-18.0) g/dL Hct 41.8 L (42-52) % Coagulation 08/11/19 Range/Units 12:02 INR 1.0 (0.9-1.1) Diagnostic Findings Postoperative x-rays of the left shoulder show the prosthesis to be in anatomic alignment without any evidence of fracture, dislocation, or loosening. PG Care Time/CCT Total # of Minutes Spent Total Time Spent with Patient: Total time spent is greater than 50% in coordination of care (as documented) at patient's floor/unit and/or counseling patient: Coding Level of Care Code None Diagnoses History of left shoulder replacement Z96.612
--- NOTE | 2019-08-21 07:31 | Discharge Summary ---
Date of Service August 21, 2019 Admission HPI Per Admitting Provider Chano is a 58-year-old male who is been having a 1 year history of increasing left shoulder pain. He states that he injured his left shoulder back in June 2018 when he tripped over a car lift and landed on his left shoulder. 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 X-rays and clinical examination have been diagnostic for advanced osteoarthritis of a left shoulder. I did a right total shoulder arthroplasty on him 2 years ago and he did very well with that. After failing extensive conservative treatment, he elected to proceed with a left total shoulder arthro plasty. Principal Diagnosis Left total shoulder arthroplasty Discharge Data Allergies Allergy/AdvReac Type Severity Reaction Status Date / Time No Known Allergies Allergy Verified 08/20/19 11:27 Procedures Performed Operation Date: 08/20/19 13:00 Actual Procedures p Left Total Shoulder Arthroplasty; Open Biceps Tendodesis(Left) - Darío Vo DO Ordered Studies 08/20/19 05:00 US - OR guided needle placemen Routine Hospital Course (1) History of left shoulder replacement: On August 20, 2019 Chano arrived at [facility] and underwent a left shoulder replacement without complication. He had a general anesthetic and a left interscalene nerve block. Postoperatively he was placed in a sling and transferred to the general orthopedic floors. His hospital course was uneventful. On postop day #1 his H&H was stable and his pain was well controlled. He was able to participate well with physical therapy doing ambulation and range of motion exercises. He was then discharged home. He will follow-up with orthopedics in 2 weeks. Total Time Total Time Spent Total Time Spent (In Minutes): 20 Discharge Plan Discharge Items Patient Disposition: Home - Home Health Services Reason For Visit: Left Shoulder Degenerative Joint Disease Discharge Diagnosis: Left total shoulder arthroplasty Activity: As commented below Non-emergency contact: Surgeon Call non-emergency contact if: your wound has increased redness and your wound has increased drainage Follow-up/Referrals: Carola Montes M.D. [Primary Care Provider] - Diet: Regular Addtl Attending Provider Instructions: Activity and Therapy Recommendations: * If you are using [facility] then therapy will be provided at your home until they feel you have accomplished all of your goals. * If you are using [facility] then Physical Therapy will be provided until they feel you are ready to start Outpatient Physical Therapy. * If you are not using home therapy then Outpatient Physical Therapy should start about 3-5 days from your day of surgery. Therapy will last about 8-12 weeks * Wear your sling for 3 weeks, unless otherwise instructed. You may remove your sling to shower and to dress, but otherwise, you should be in your sling at all times, including while sleeping * The shoulder replacement is very stable and you can use your hand while in the sling * You were shown a series of exercises in the hospital. Do these exercises daily including the exercises you were shown in physical therapy. Medications: * Narcotic You will likely be sent home from the hospital with a prescription for the narcotic pain medication that worked best throughout your stay. * Other medications may be prescribed for specific circumstances. If you have any questions, please call the office at . * Resume previous home medications unless otherwise instructed Dressing Care: Leave the plastic dressing in place for 5 days. After 5 days you may remove the plastic dressing. If the incision is not draining then you may leave the minerva open to air. If there is a little bit of drainage or if the minerva are getting stuck on your clothing then cover the incision with a dry dressing. The minerva will be removed at your 2 week follow-up appointment. Showering: You may shower with the plastic dressing in place. Let the shower spray hit the other shoulder. You can pat the plastic dry. If the dressing becomes wet underneath the plastic then simply remove the dressing. Keep the incision dry until you are 5 days out from the day of surgery. At that time you can shower with the minerva exposed. Let the soapy shower water run over the minerva and pat them dry. Do not scrub or soak the incision. Things To Watch For: * Drainage from the incision site that occurs more than one week after your surgery. * Increased redness at the incision site. * Fever above 102 degrees Fahrenheit. * Unusual chest pain or shortness of breath. * Call [facility] at with any of the above problems Follow-Up Visit: Follow-up with Dr. Vo's PA (Darío Monahan) 2-3 weeks after your day of surgery. He will remove your minerva and answer any questions. If you have any additional questions or concerns, Dr Vo is usually in the office at the same time and will be available An appointment was probably scheduled when you signed-up for surgery in the office. If you have any questions call More detailed instructions as well as Frequently Asked Questions were provided in a folder by our office when you signed-up for surgery. Please review these instructions when you get home. If you have any further questions or concerns, please feel free to call the office at [phone] Pending Studies at Discharge: No Stand-Alone Forms: [facility], Smoking Cessation Medications and DC Order Prescriptions: New oxycodone 5 mg Tablet 5 mg PO Q4H PRN (Reason: pain) Qty: 30 RF: 0 Continued acetaminophen 500 mg Capsule 1,000 mg PO Q6H PRN (Reason: Pain) RF: 0 amlodipine-benazepril [Lotrel] 10-20 mg Capsule 1 cap PO QAM RF: 0 coenzyme Q10 [CoQ-10] 100 mg Capsule 100 mg PO BID RF: 0 furosemide 80 mg Tablet 80 mg PO DAILY PRN (Reason: Edema) RF: 0 esomeprazole magnesium 40 mg Capsule,Delayed Release(Dr/Ec) 40 mg PO QAM RF: 0 diclofenac sodium 1 % Gel 2 g TOPICAL QID PRN (Reason: Pain) RF: 0 Breo Ellipta 200-25 mcg/dose Blister With Device 1 inh INHALATION QAM RF: 0 Spiriva with HandiHaler 18 mcg Capsule, W/Inhalation Device 1 cap INHALATION QAM RF: 0 multivitamin Tablet 1 tab PO QAM RF: 0 metoprolol succinate 50 mg Tablet Extended Release 24 Hr 50 mg PO QAM RF: 0 albuterol sulfate 1.25 mg/3 mL Solution For Nebulization 1.25 mg INHALATION QID PRN (Reason: bronchitis) RF: 0 meloxicam 15 mg Tablet 15 mg PO QAM RF: 0 triamcinolone acetonide [Nasacort] 55 mcg Aerosol,Melvin 1 spray INTRANASAL HS RF: 0 montelukast 10 mg Tablet 10 mg PO QAM RF: 0 albuterol sulfate 90 mcg/actuation Aero Powdr Breath Act W/Sensor 2 inh INHALATION Q6H PRN (Reason: sob) RF: 0 Discharge Orders: Discharge Order (Routine); Ordered 08/21/19 Ordered By: Darío Vo Admission Data Admit Date/Time: 08/20/19 15:58 Attending Provider: Darío Vo Admit Provider: Darío Vo Primary Care Provider: Carola Montes V. Coding Level of Care Code D/C Day Management <30 mins Diagnoses History of left shoulder replacement Z96.612
[2019-08-21] MEDS ORDERED: dexAMETHasone 4 MG TAB PO SCH (08:00)
[2019-08-21] MEDS ORDERED: FLUTICASONE/VILANTEROL 200/25MCG 14 PUFFS/INHALER INH SCH (09:00)
[2019-08-21] MEDS ORDERED: AMLODIPINE BESYLATE 5 MG TAB PO SCH (09:00)
[2019-08-21] MEDS ORDERED: MONTELUKAST SODIUM 10 MG TABLET PO SCH (09:00)
[2019-08-21] MEDS ORDERED: ENALAPRIL MALEATE 10 MG TAB PO SCH (09:00)
[2019-08-21] MEDS ORDERED: PANTOprazole 40 MG TAB PO SCH (09:00)
[2019-08-21] MEDS ORDERED: UMECLIDINIUM BROMIDE 62.5MCG/BLISTER 7 PUFFS/INHALER INH SCH (09:00)
[2019-08-21] MEDS ORDERED: METOPROLOL SUCC 50MG EXT REL TAB PO SCH (09:00)
[2019-08-21] MEDS ORDERED: MULTIVITAMIN TAB PO SCH (09:00)
[2019-08-21] MEDS: DOCUSATE SODIUM 100 MG CAP PO SCH (09:57)
[2019-08-21] MEDS: OXYCODONE HCL IR 5 MG TAB (IMMEDIATE RELEASE) PO PRN ×2 (10:01→11:10)
== END 2019-08-21 11:52 | disposition home or self-care (01) ==
LOC: ASU 11:01 → 3E 15:58 → INTOOBSV 15:58